=== PATIENT | female | born 1990 | race Caucasian/White ===

== ENCOUNTER 2021-11-25 14:14 | Inpatient (IN) | payer OTHER ==
[~2021-11-25 14:14] MED LIST: MACROBID100 MG PO; PERCOCET 5-3251 EACH PO; PRENATAL FORMU1 EACH PO; SILVADENE20 G1 TOP
[2021-11-25 15:39] LABS: HGB 12.6 g/dl (12.5-16.0); MCHC 34.1 g/dL (32.0-36.0); MCV 90.9 fL (78.0-100.0); MPV 9.8 fL (6.0-9.5); RBC 4.07 M/uL (4.20-5.40); RDW 14.8 % (11.5-14.0); WBC 10.3 K/uL (4.0-10.5)
[2021-11-25 15:51] LABS: BILIRUBIN NEGATIVE (NEGATIVE); BLOOD NEGATIVE Ery/uL (NEGATIVE); CLARITY CLEAR (CLEAR); COLOR YELLOW (YELLOW); GLUCOSE (U) NORMAL (NORMAL); LEUKOCYTES NEGATIVE Leu/uL (NEGATIVE); NITRITE NEGATIVE (NEGATIVE); PROTEIN NEGATIVE (NEGATIVE); SPECIFIC GRAVITY <=1.005 (1.001-1.030); UROBILINOGEN 0.2 mg/dL (0.2-1.0)
[2021-11-25] MEDS ORDERED: PRENATAL FORMU1 EACH PO (18:13)
[2021-11-25] MEDS ORDERED: IBUPROFEN800 M1 PO (18:13)
[2021-11-25] MEDS ORDERED: COLACE100 MG PO (18:13)
[2021-11-25] MEDS ORDERED: PERCOCET 5-3251 EACH PO (18:13)
[2021-11-25 22:17] LABS: BILIRUBIN NEGATIVE (NEGATIVE); BLOOD NEGATIVE Ery/uL (NEGATIVE); CLARITY CLEAR (CLEAR); COLOR YELLOW (YELLOW); GLUCOSE (U) NORMAL (NORMAL); LEUKOCYTES NEGATIVE Leu/uL (NEGATIVE); NITRITE NEGATIVE (NEGATIVE); PROTEIN NEGATIVE (NEGATIVE); SPECIFIC GRAVITY <=1.005 (1.001-1.030); UROBILINOGEN 0.2 mg/dL (0.2-1.0)
[2021-11-26 07:04] LABS: HCT 31.5 % (37.0-47.0); HGB 10.6 g/dL (12.5-16.0)
== END 2021-11-28 11:25 | disposition home or self-care (01) | DRG 787 ==
LOC: FOB 14:14 → FIS 14:14 → FOB 14:15 → FIS 15:26 → FOB 15:27
PROVIDERS: Specialist; ADMIT Obstetrics & Gynecology
PROC: 10D00Z1 Extraction of Products of Conception, Low, Open Approach (ICD-10-PCS; principal; 2021-11-25 16:57)
DX: O34.211 Maternal care for low transverse scar from previous cesarean delivery (principal); D62 Acute posthemorrhagic anemia; Z37.0 Single live birth; Z3A.39 39 weeks gestation of pregnancy; O36.63X0 Maternal care for excessive fetal growth, third trimester, not applicable or unspecified; O90.81 Anemia of the puerperium
CPT/HCPCS: 36415; 36600; 81003; 82803; 85014; 85018; 86850; 86900; 86901; J0456; J0690; J1885; J2274; J2370; J2405; J7050; J7120

== ENCOUNTER → 2022-01-07 | Day surgery (SDC) | payer OTHER ==
[~2022-01-07] VITALS: Ht 175.3 cm; Wt 80.3 kg
[~2022-01-07] MED LIST changes: +COLACE100 MG PO; +FLUCONAZOLE150 MG PO; +IBUPROFEN800 M1 PO; +ONDANSETRON ODT4 MG PO
[2022-01-07 08:40] LABS: HCG (URINE) SCREEN NEGATIVE (NEGATIVE)
[2022-01-07 09:13] LABS: HCT 39.6 % (37.0-47.0); HGB 13.5 g/dl (12.5-16.0); MCH 30.1 pg (25.0-31.0); MCHC 34.1 g/dL (32.0-36.0); MCV 88.4 fL (78.0-100.0); MPV 9.8 fL (6.0-9.5); RBC 4.48 M/uL (4.20-5.40); RDW 12.6 % (11.5-14.0); WBC 3.6 K/uL (4.0-10.5)
== END | disposition home or self-care (01) ==
LOC: FAS 08:20
PROVIDERS: Obstetrics & Gynecology
DX: N72 Inflammatory disease of cervix uteri (principal); N87.9 Dysplasia of cervix uteri, unspecified; N93.9 Abnormal uterine and vaginal bleeding, unspecified; K66.0 Peritoneal adhesions (postprocedural) (postinfection); N94.6 Dysmenorrhea, unspecified; R10.2 Pelvic and perineal pain; N89.8 Other specified noninflammatory disorders of vagina; Z91.011 Allergy to milk products; Z91.013 Allergy to seafood; Z72.89 Other problems related to lifestyle
CPT/HCPCS: 36415; 84703; 86850; 86880; 86900; 86901; 86906; J0690; J1100; J1170; J1885; J2250; J2405; J2704; J3010; J7120; Q9968